=== PATIENT | female | born 1970 | race Caucasian/White ===

== ENCOUNTER 2017-06-24 09:29 | Emergency (ER) | payer BC, OTHER ==
[2017-06-24 09:41] VITALS: BMI 29.2
--- NOTE | 2017-06-24 09:43 | PDOC ---
Attending Attestation - Resident Resident Name: Art Cross - HPI HPI: 06/24/17 10:45 Pt presents to the ED complaining of a one day history of vertigo and nausea that are constant but worse with position changes or moving her head. Denies vomiting or fever. States that her symptms are moderate in severity. Denies prior history of vertigo. Some relief after zofran in the Ed. - Physicial Exam PE: 06/24/17 11:00 agree with resident exam. Patient is well appearing and neurologically intact. , - Medical Decision Making 06/24/17 11:00 pt presents to the Ed complaining of vertigo that is positional. Symptoms are most consistent with BPPV. Will treat with meclizine and reassess.
--- NOTE | 2017-06-24 09:59 | PDOC ---
History of Present Illness - General Chief Complaint: Lightheaded Stated Complaint: NAUSEA Time Seen by Provider: 06/24/17 09:39 - History of Present Illness Initial Comments: 06/24/17 10:10 The patient is a 46 year old female with a history of asthma and tenorio's palsy who presents for evaluation of dizziness and nausea. The patient reports sudden onset of dizziness and nausea upon waking up this morning. She notes that when she closes her eyes, she has the sensation that the room is swaying around herself. She notes that her symptoms are worse with movement of her head. She denies having similar symptoms in the past prompting her presentation to the ED for evaluation. She reports 2 episodes of non-bilious, non-bloody vomiting as well. She denies fevers, chills, headache, chest pain, SOB, abdominal pain, or changes with urination or bowel movements. Past History - Past Medical History Allergies/Adverse Reactions: Allergies Allergy/AdvReac Type Severity Reaction Status Date / Time Penicillins Allergy Verified 06/24/17 09:33 Home Medications: Ambulatory Orders Meclizine HCl [Antivert -] 25 mg PO TID #21 tablet 06/24/17 Ondansetron [Zofran -] 4 mg PO TID #21 tablet 06/24/17 COPD: No Other medical history: BELLS PALSY - Suicide/Smoking/Psychosocial Hx Smoking History: Never smoked Hx Alcohol Use: Yes (SOCIAL) Drug/Substance Use Hx: No Substance Use Type: None Review of Systems - Review of Systems Comments:: 06/24/17 10:12 Constitutional: No fevers, chills, fatigue, malaise HEENT: No Rhinorrhea, nasal congestion, visual changes Cardiovascular: No chest pain, syncope, palpitations, lightheadedness Respiratory: No Cough, SOB, Hemoptysis, Gastrointestinal: Nausea, vomiting. No Abdominal pain, Constipation, Diarrhea, Melena Genitourinary: No Dysuria, Frequency, Urgency, Hesitancy, Hematuria, Flank pain Musculoskeletal: No Myalgia, arthralgia Skin: No rashes, bruising, pallor Neurologic: Dizziness, No Headache, Numbness, Weakness, or Tingling Psychiatric: No Hallucinations. No SI or HI *Physical Exam - Vital Signs Last Vital Signs Temp Pulse Resp BP Pulse Ox 97.8 F 77 20 106/69 99 06/24/17 09:30 06/24/17 09:30 06/24/17 09:30 06/24/17 09:30 06/24/17 09:30 - Physical Exam Comments: 06/24/17 10:13 General Appearance: Nourished. No Apparent Distress HEENT: EOMI, EUGENIA. TM are clear with a normal light reflex. No Pharyngeal Erythema, Tonsillar Exudate, Tonsillar Erythema Neck: No Cervical Lymphadenopathy Respiratory/Chest: Lungs Clear, Normal Breath Sounds. No Crackles, Rales, Rhonchi, Wheezing Cardiovascular: Regular Rhythm, Regular Rate. No Murmur, Gallops, Rubs Gastrointestinal/Abdominal: Normal Bowel Sounds, Soft. 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 Normal Finger to Nose and Heel to Styles Heart Score/ECG Review #1 ECG reviewed & interpreted by me at: 11:14 General ECG Interpretation: Sinus Rhythm, Normal Rate, Normal Intervals, No acute ischemic changes ED Treatment Course - LABORATORY CBC & Chemistry Diagram: 06/24/17 10:25 06/24/17 10:25 Medical Decision Making - Medical Decision Making 06/24/17 10:15 The patient is a 46 year old female with a history of asthma and tenorio's palsy who presents for evaluation of dizziness and nausea. Differential includes but is not limited to: Peripheral vertigo, viral syndrome, arrhythmia, infectious, or metabolic derangement. Given the patient's history with positional symptoms , it is likely her symptoms are due to a peripheral vertigo. However, we will obtain a cbc, cmp, ekg to evaluate for other etiologies. We will treat with meclazine, and zofran and continue to monitor and reassess. 06/24/17 11:37 CBC, cmp, ekg are unremarkable. The patient reports significant improvement in her symptoms with meclazine and zofran. Her symptoms are likely due to peripheral vertigo. We are comfortable discharging the patient home at this time with primary care provider follow up. We discussed the results and the plan with the patient who voiced understanding and is agreeable with the plan. *DC/Admit/Observation/Transfer Diagnosis at time of Disposition: Vertigo - Discharge Dispostion Disposition: HOME Condition at time of disposition: Improved Admit: No - Prescriptions Prescriptions: Meclizine HCl [Antivert -] 25 mg PO TID #21 tablet Ondansetron [Zofran -] 4 mg PO TID #21 tablet - Referrals Referrals: Cherelle Giles MD [Primary Care Provider] - - Patient Instructions Printed Discharge Instructions: DI for Benign Paroxysmal Positional Vertigo Additional Instructions: Please return to the ER if you experience concerning or worsening symptoms including any numbness or weakness in your extremities, chest pain, or difficulty breathing. Your lab results were normal here in the ER. Your symptoms are likely due to vertigo. We have sent a prescription to your pharmacy for an anti-nausea medication and a medication for dizziness that you can take as needed for your nausea and dizziness. Please call to schedule a follow up appointment with your primary care provider within 1 week to discuss your ER visit. - Post Discharge Activity Forms/Work/School Notes: Back to Work
[2017-06-24] MEDS ORDERED: MECLIZINE HCL 25 MG TABLET (FP) PO ONE (10:04)
[2017-06-24] MEDS ORDERED: ONDANSETRON *ODT* 4 MG TABLET SL ONE (10:04)
[2017-06-24] MEDS ORDERED: MECLIZINE HCL 25 MG TABLET (FP) ONE (10:11)
[2017-06-24] MEDS ORDERED: ONDANSETRON *ODT* 4 MG TABLET ONE (10:11)
--- NOTE | 2017-06-24 10:35 | EKG ---
Test Reason : Blood Pressure : / mmHG Vent. Rate : 072 BPM Atrial Rate : 072 BPM P-R Int : 164 ms QRS Dur : 078 ms QT Int : 390 ms P-R-T Axes : 049 026 019 degrees QTc Int : 427 ms NORMAL SINUS RHYTHM LOW VOLTAGE QRS BORDERLINE ECG WHEN COMPARED WITH ECG OF 11-JAN-2009 10:30, NO SIGNIFICANT CHANGE WAS FOUND Confirmed by CASH ERVIN MD ([id number]) on 06/24/2017 10:35:12 AM Referred By: Confirmed By:CASH ERVIN MD
[2017-06-24 10:52] LABS: ALBUMIN 3.7 g/dl (3.4-5.0); ANION GAP 10 (8-16); BILIRUBIN,TOTAL 0.5 mg/dL (0.2-1.0); BLOOD UREA NITROGEN 13 mg/dL (7-18); CALCIUM 8.4 mg/dL (8.5-10.1); CHLORIDE 106 mmol/L (98-107); CO2 23 mmol/L (21-32); CREATININE 0.5 mg/dL (0.55-1.02); GLUCOSE,RANDOM 100 mg/dL (74-106); SGOT/AST 15 U/L (15-37); SGPT/ALT 33 U/L (12-78); SODIUM 139 mmol/L (136-145); TOT PROT 6.8 g/dl (6.4-8.2)
[2017-06-24 10:53] LABS: ALK PHOS 62 U/L (45-117)
[2017-06-24 11:12] LABS: BASO % 0.5 % (0-2.0); HEMATOCRIT 41.2 % (32.4-45.2); HEMOGLOBIN 13.5 GM/dL (10.7-15.3); LYMPH % 30.3 % (8-40); MCH 28.8 pg (25.7-33.7); MCHC 32.7 g/dl (32.0-36.0); MEAN CELL VOLUME 88.1 fl (80-96); MEAN PLT VOLUME 8.2 fl (7.5-11.1); MONO % 8.3 % (3.8-10.2); NEUT % 57.9 % (42.8-82.8); PLATELET COUNT 269 K/MM3 (134-434); RBC 4.68 M/mm3 (3.60-5.2); RDW 13.6 % (11.6-15.6); WHITE BLOOD COUNT 7.6 K/mm3 (4.0-10.0)
[2017-06-24 12:59] VITALS: BP 103/75; PULSE 65; TEMP 97.7
== END 2017-06-24 11:56 | disposition home or self-care (01) ==
LOC: JER 09:29
DX: H81.10 Benign paroxysmal vertigo, unspecified ear (principal); J45.909 Unspecified asthma, uncomplicated; G51.0 Bell's palsy
CPT/HCPCS: 36415; 80053; 85025; 93005; 93010; 99282-25

== ENCOUNTER 2021-06-01 05:26 | Day surgery (SDC) | payer OTHER ==
[2021-05-30 13:00] VITALS: BMI 29.8
[2021-06-01] MEDS ORDERED: PROPOFOL 20 ML ONE ×3 (07:33)
[2021-06-01] MEDS ORDERED: LIDOCAINE HCL/PF 2% SDV 5ML VIAL ONE ×2 (07:33→08:26)
[2021-06-01] MEDS ORDERED: KETOROLAC TROMETHAMINE 30 MG/1 ML VIAL ONE ×2 (07:33→08:26)
[2021-06-01] MEDS ORDERED: MIDAZOLAM HCL 2 MG/2 ML SINGLE DOSE VIAL ONE (07:34)
[2021-06-01] MEDS ORDERED: LIDOCAINE 1%/EPI 1:100000 (20 ML MULTI DOSE VIAL) ONE (07:43)
[2021-06-01] MEDS ORDERED: BUPIVACAINE HCL/PF 0.5% (5MG/ML) 10 ML VIAL ONE ×2 (07:44→07:49)
[2021-06-01] MEDS ORDERED: BUPIVACAINE HCL/PF 0.5% (5MG/ML) 10 ML VIAL IJ ONE (08:23)
[2021-06-01] MEDS ORDERED: LIDOCAINE 1%/EPI 1:100000 (20 ML MULTI DOSE VIAL) IJ ONE (08:23)
[2021-06-01] MEDS ORDERED: DEXAMETHASONE SOD PHOSPHATE 4 MG/1 ML VIAL ONE (08:26)
[2021-06-01] MEDS ORDERED: ONDANSETRON 4 MG/2 ML VIAL IVPUSH PRN (08:43)
[2021-06-01] MEDS ORDERED: oxyCODONE HCL 5 MG TABLET PO PRN ×2 (08:43)
[2021-06-01] MEDS ORDERED: LACTATED RINGERS SOLUTION 1,000 ML IV SCH (08:45)
[2021-06-01 09:51] VITALS: TEMP 98.8
[2021-06-01] MEDS ORDERED: ACETAMINOPHEN 325 MG TABLET (FP) PO ONE (11:50)
[2021-06-01] MEDS ORDERED: ACETAMINOPHEN 500 MG TABLET (FP) PO ONE (11:56)
[2021-06-01] MEDS ORDERED: ACETAMINOPHEN 325 MG TABLET (FP) ONE (11:57)
[2021-06-01 12:07] VITALS: BP 106/65; PULSE 61
[2021-06-01] MEDS ORDERED: ONDANSETRON 4 MG/2 ML VIAL ONE (12:26)
[2021-06-01] MEDS ORDERED: ONDANSETRON 4 MG/2 ML VIAL IVPUSH ONE (12:35)
== END 2021-06-01 14:31 | disposition home or self-care (01) ==
LOC: JASU-SURG 05:26
PROVIDERS: ATTEND Orthopaedic Surgery
PROC: 0SBD4ZZ Excision of Left Knee Joint, Percutaneous Endoscopic Approach (ICD-10-PCS; principal; 2021-06-01 08:00)
DX: S83.242A Other tear of medial meniscus, current injury, left knee, initial encounter (principal); M17.12 Unilateral primary osteoarthritis, left knee; X58.XXXA Exposure to other specified factors, initial encounter; Y93.9 Activity, unspecified; Y92.89 Other specified places as the place of occurrence of the external cause; Y99.9 Unspecified external cause status
CPT/HCPCS: 81025; 94760

== ENCOUNTER 2022-10-07 16:12 | Emergency (ER) | payer BC, OTHER ==
[2022-10-07] MEDS ORDERED: SODIUM CHLORIDE 1,000 ML IV ONE (16:18)
[2022-10-07 16:30] VITALS: BP 109/73; PULSE 98; RESP 20; TEMP 98.2
[2022-10-07 17:16] LABS: HEMATOCRIT 41.7 % (32.4-45.2); HEMOGLOBIN 14.2 G/dL (10.7-15.3); MCH 29.7 pg (25.7-33.7); MCHC 34.1 g/dl (32.0-36.0); MEAN PLT VOLUME 8.2 fl (7.5-11.1); PLATELET COUNT 245.3 10^3/uL (134-434); RBC 4.79 10^6/uL (3.60-5.2); RDW 14.4 % (11.6-15.6); WHITE BLOOD COUNT 8.1 10^3/uL (4.0-10.8)
[2022-10-07 17:33] LABS: BILIRUBIN,TOTAL 0.5 mg/dl (0.2-1); CALCIUM 8.9 mg/dl (8.5-10); CREATININE 0.6 mg/dl (0.55-1.3); TOT PROT 6.8 g/dl (6.4-8.2)
[2022-10-07 20:46] LABS: PLATELET ESTIMATE ADEQUATE
== END 2022-10-07 18:32 | disposition home or self-care (01) ==
LOC: FER 16:12
PROC: 3E0337Z Introduction of Electrolytic and Water Balance Substance into Peripheral Vein, Percutaneous Approach (ICD-10-PCS; principal; 2022-10-07)
DX: R00.2 Palpitations (principal); R07.89 Other chest pain; X50.0XXA Overexertion from strenuous movement or load, initial encounter; Y99.0 Civilian activity done for income or pay
CPT/HCPCS: 36415; 80053; 84484; 85027; 93005; 99284-25

== ENCOUNTER 2023-06-08 14:01 | Emergency (ER) | payer BC ==
[2023-06-08 14:08] VITALS: BP 102/64; PULSE 67; RESP 18; TEMP 98.1; BMI 29.8
[2023-06-08] MEDS ORDERED: ACETAMINOPHEN 500 MG TABLET (FP) PO ONE (15:36)
[2023-06-08] MEDS ORDERED: ACETAMINOPHEN 500 MG TABLET (FP) ONE (15:40)
== END 2023-06-08 17:18 | disposition home or self-care (01) ==
LOC: JERFT 14:01
DX: M25.561 Pain in right knee (principal); R22.41 Localized swelling, mass and lump, right lower limb; G89.18 Other acute postprocedural pain
CPT/HCPCS: 73564-TC-RT-FY; 99283-25